=== PATIENT | female | born 1975 | race Caucasian/White ===

== ENCOUNTER 2023-08-11 12:44 | Emergency (ER) | payer OTHER, BC ==
[2023-08-11] MEDS ORDERED: Naloxone 0.4 MG/ML SDV IVPUSH PRN (12:59)
[2023-08-11] MEDS: Ondansetron 4 MG/2 ML SDV IVPUSH ONE (13:14)
[2023-08-11] MEDS: fentaNYL 50 MCG/ML SDV IVPUSH ONE (13:14)
[2023-08-11] MEDS ORDERED: fentaNYL 50 MCG/ML SDV IVPUSH ONE (13:31)
[2023-08-11] MEDS ORDERED: Prochlorperazine 10 MG/2 ML SDV IV ONE (13:32)
[2023-08-11 13:45] LABS: BASOPHILS ABSOLUTE AUTO 0.02 K/uL (0.00-0.20); BASOPHILS PERCENT AUTO 0.2 % (0.0-2.0); EOSINOPHILS ABSOLUTE AUTO 0.06 K/uL (0.00-0.50); EOSINOPHILS PERCENT AUTO 0.6 % (0.0-5.0); HEMATOCRIT 35.7 % (34.0-46.0); HEMOGLOBIN 12.3 g/dL (11.7-15.5); LYMPHOCYTES PERCENT AUTO 22.9 % (10.0-50.0); MEAN CORPUSCULAR HEMOGLOBIN 32.4 pg (28.2-33.3); MEAN CORPUSCULAR HGB CONC 34.5 g/dL (31.7-36.0); MEAN CORPUSCULAR VOLUME 93.9 fL (84.0-98.0); MONOCYTES ABSOLUTE AUTO 0.58 K/uL (0.00-1.00); MONOCYTES PERCENT AUTO 5.5 % (2.0-14.0); NEUTROPHILS PERCENT AUTO 70.8 % (45.0-80.0); PLATELET COUNT,PLT 226 K/uL (150-350); RED CELL DISTRIBUTION WIDTH 12.3 % (11.2-14.1); WHITE BLOOD CELL COUNT,WBC 10.5 K/uL (4.0-10.2)
[2023-08-11 13:52] LABS: PROTHROMBIN TIME 9.9 SEC (9.0-11.1)
[2023-08-11 13:58] LABS: ALANINE AMINOTRANSFERASE,ALT 28 U/L (12-78); ALKALINE PHOSPHATASE 56 IU/L (46-116); ANION GAP 15.8 meq/L (7-15); ASPARTATE AMNIOTRANSFERASE,AST 24 U/L (15-37); BILIRUBIN TOTAL 0.5 mg/dL (0.2-1.0); BLOOD UREA NITROGEN,BUN 14 mg/dL (7-18); CALCIUM 8.4 mg/dL (8.5-10.1); CARBON DIOXIDE,CO2 24.5 mmol/L (21.0-32.0); CHLORIDE,CL 103 mmol/L (98-107); CREATININE 0.79 mg/dL (0.51-1.17); ESTIMATED GFR 94 mL/min (>=60); GLUCOSE RANDOM 115 mg/dL (70-99); POTASSIUM,K 3.3 mmol/L (3.5-5.1); SODIUM,NA 140 mmol/L (136-145)
== END 2023-08-11 14:13 ==
LOC: LL.ED 12:44
DX: S52.614A Nondisplaced fracture of right ulna styloid process, initial encounter for closed fracture (principal); S52.501A Unspecified fracture of the lower end of right radius, initial encounter for closed fracture; S09.90XA Unspecified injury of head, initial encounter; Z88.1 Allergy status to other antibiotic agents; Z88.5 Allergy status to narcotic agent; Z79.82 Long term (current) use of aspirin; Z79.899 Other long term (current) drug therapy; Z86.16 Personal history of COVID-19; Z90.710 Acquired absence of both cervix and uterus; W10.9XXA Fall (on) (from) unspecified stairs and steps, initial encounter
CPT/HCPCS: 36415; 70450; 71045; 72125; 80053; 85025; 85610; 96374; 96375; 96376; 99284; 99285-25; J2405; J3010